=== PATIENT | male | born 1990 | race Caucasian/White ===

== ENCOUNTER 2024-04-25 10:27 | Outpatient (CLI) | payer OTHER, SELFPAY | END 2024-04-25 10:28 | disposition home or self-care (01) | PROVIDERS: PCP Family Medicine; Visit Provider Family Medicine | DX: E66.3 Overweight (principal); Z13.228 Encounter for screening for other metabolic disorders; Z13.220 Encounter for screening for lipoid disorders; Z13.29 Encounter for screening for other suspected endocrine disorder | CPT/HCPCS: 80053; 80061; 84443 ==

== ENCOUNTER 2024-05-25 10:28 | Outpatient (CLI) | payer OTHER, SELFPAY ==
--- NOTE | 2024-05-25 10:45 | CRLHL7_ITS ---
For Patients: As a result of the Century Cures Act, medical imaging exams and procedure reports are released immediately into your electronic medical record. You may view this report before your referring provider. If you have questions, please contact your health care provider. INDICATION: trauma inducing swelling 15 years ago COMPARISON: none TECHNIQUE: Hough scale imaging was performed of the scrotum. In addition color Doppler and spectral Doppler analysis was performed of the testes. FINDINGS: The left testicular echotexture is heterogeneous with multiple microcalcifications. There is a lobular circumscribed vascular hypoechoic mass within the left testicle which measures 2.6 x 1.4 x 1.8 cm. Right testicle normal. The right testis measures 5.7 x 2.9 x 3.8 cm in size and the left testis measures 3.8 x 2.1 x 2.4 cm. The epididymis appears normal bilaterally. There is no evidence of a hydrocele or varicocele. IMPRESSION: Diffusely abnormal left testicle with a suspicious solid hypoechoic and vascular lesion within the left testicle measuring 2.6 x 1.4 x 1.8 cm. Urology consultation recommended. Dictated by Scott Torres MD @ 05/27/2024 9:21:42 AM (Electronically Signed)
== END 2024-05-25 10:29 | disposition home or self-care (01) ==
LOC: US 10:29
PROVIDERS: PCP Family Medicine; Visit Provider Family Medicine
DX: N50.89 Other specified disorders of the male genital organs (principal)
CPT/HCPCS: 76870; 93976

== ENCOUNTER 2025-01-27 12:32 | Outpatient (CLI) | payer OTHER, SELFPAY | END 2025-01-27 12:33 | disposition home or self-care (01) | LOC: CT 12:32 | PROVIDERS: PCP Family Medicine; Visit Provider Internal Medicine | DX: R91.8 Other nonspecific abnormal finding of lung field (principal); C62.12 Malignant neoplasm of descended left testis | CPT/HCPCS: 74177; Q9967 ==

== ENCOUNTER 2025-07-31 09:31 | Outpatient (CLI) | payer OTHER, SELFPAY ==
--- NOTE | 2025-07-31 10:00 | CRLHL7_ITS ---
For Patients: As a result of the Century Cures Act, medical imaging exams and procedure reports are released immediately into your electronic medical record. You may view this report before your referring provider. If you have questions, please contact your health care provider. Indication: Testicular cancer Technique: CT Chest/Abd/Pelvis [id number]/[id number] intravenous contrast Please note that all CT scans at this facility use dose modulation, iterative reconstruction, and/or weight-based dosing when appropriate to reduce radiation dose to as low as reasonably achievable. Comparison: 01/27/2025 CT abdomen and pelvis Findings: In the chest, calcified granulomas in the left lower lobe are unchanged. Stable noncalcified nodule in the right lung base adjacent to the hemidiaphragm measures 4 millimeters, 3/59. Calcified granuloma within the left lower lobe, 3/40, also noted. No additional nodules. Densely calcified subcarinal lymph node is stable. Multiple calcified left hilar lymph nodes. No pleural or pericardial effusion. Thoracic inlet unremarkable. No suspicious lymph nodes within the thorax. Osseous structures are within normal limits. In the abdomen, there is no intrahepatic mass. The gallbladder is normal. Spleen is within normal limits. Incidental splenule is present. Normal adrenal glands. Incidental extrarenal pelvis noted. Pancreas is within normal limits. Stable subcentimeter retroperitoneal lymph nodes measuring up to 8.2 millimeters in short axis diameter. Scattered sub cm mesenteric lymph nodes are also unchanged. In the pelvis, there is sigmoid diverticulosis. No diverticulitis. No bowel obstruction or free air. No free fluid or abscess. Normal appendix. Subcentimeter pelvic lymph nodes are stable. Bladder normal. Normal prostate. No abdominal wall hernia. Inguinal lymph nodes are normal. Osseous structures are unremarkable. Impression: Stable sub cm retroperitoneal, mesenteric and bilateral pelvic lymph nodes. Chronic granulomatous changes within the chest. Stable noncalcified 4 millimeter right lower lobe pulmonary nodule. Please note that all CT scans at this facility use dose modulation, iterative reconstruction, and/or weight-based dosing when appropriate to reduce radiation dose to as low as reasonably achievable. Dictated by Scott Torres MD @ 07/31/2025 1:23:57 PM (Electronically Signed)
== END 2025-07-31 09:32 | disposition home or self-care (01) ==
LOC: CT 09:33
PROVIDERS: PCP Family Medicine; Visit Provider Internal Medicine
DX: C62.12 Malignant neoplasm of descended left testis (principal); C77.2 Secondary and unspecified malignant neoplasm of intra-abdominal lymph nodes; R91.1 Solitary pulmonary nodule; R16.0 Hepatomegaly, not elsewhere classified
CPT/HCPCS: 71260; 74177; Q9967

== ENCOUNTER 2025-08-10 09:49 | Outpatient (CLI) | payer OTHER, SELFPAY | END 2025-08-10 09:50 | disposition home or self-care (01) | LOC: NFLDREF 08-17 01:23 | PROVIDERS: PCP Family Medicine; Referring Provider Family Medicine; Visit Provider Family Medicine | DX: I10 Essential (primary) hypertension (principal); Z13.1 Encounter for screening for diabetes mellitus; Z13.6 Encounter for screening for cardiovascular disorders | CPT/HCPCS: 80053; 80061 ==